=== PATIENT | female | born 1960 | race Caucasian/White ===

== ENCOUNTER 2016-12-13 11:42 | Inpatient (IN) | payer OTHER ==
[2016-12-10 13:22] LABS: ASPARTATE AMINO TRANSFERASE 19 U/L (15-37); BLOOD UREA NITROGEN 18 mg/dL (7-18)
[~2016-12-13] VITALS: Ht 166.4 cm; Wt 57.5 kg
[~2016-12-13 11:42] MED LIST: CEPH-376 PO; EMPA25TA PO; FLUC150T PO; INSU100V8 SQ; LEVO125T5 PO; LEVO137T25 PO; LIRA0.6P2 SC; METF500T9 PO; ONDA8TAB16 SL; SULF-169 PO; [UNRECOGNIZED DRUG - OTHER] PO
[2016-12-13] MEDS ORDERED: LACTATED RINGERS 1,000 ML IV SCH (12:05)
[2016-12-13] MEDS ORDERED: DEXTROSE 50%, 50ML SYRINGE ONE (12:28)
[2016-12-13] MEDS ORDERED: DEXTROSE 50%, 50ML SYRINGE IVPush ONE (12:30)
[2016-12-13 12:39] VITALS: BP 107/71
[2016-12-13] MEDS ORDERED: FENTANYL PF 100 MCG/2ML ONE ×2 (13:52→16:03)
[2016-12-13] MEDS ORDERED: MIDAZOLAM 1 MG/ML, 2ML ONE (13:52)
[2016-12-13] MEDS ORDERED: EPINEPHRINE 1 MG/ML, 1ML ONE (13:55)
[2016-12-13] MEDS ORDERED: BUPIVACAINE/PF 0.5% ONE (13:55)
[2016-12-13] MEDS ORDERED: ONDANSETRON 2MG/ML, 2ML ONE ×2 (14:29→16:03)
[2016-12-13] MEDS ORDERED: PHENYLEPHRINE 10 MG/ML ONE (14:29)
[2016-12-13] MEDS ORDERED: DEXAMETHASONE 4 MG/ML, 1ML ONE (14:29)
[2016-12-13] MEDS ORDERED: PROPOFOL 10 MG/ML, 20ML ONE (14:29)
[2016-12-13] MEDS ORDERED: CEFAZOLIN 1,000 MG ONE (14:29)
[2016-12-13] MEDS ORDERED: MIDAZOLAM 1 MG/ML, 2ML IV PRN (15:00)
[2016-12-13] MEDS ORDERED: hydrALAzine 20 MG/ML, 1ML IV PRN (15:00)
[2016-12-13] MEDS ORDERED: MEPERIDINE/PF 25MG/0.5ML IVPush PRN (15:00)
[2016-12-13] MEDS ORDERED: ONDANSETRON 2MG/ML, 2ML IVPush PRN ×2 (15:00→16:00)
[2016-12-13] MEDS ORDERED: ALBUTEROL/IPRATROPIUM 2.5MG/0.5MG, 3 ML NPPB PRN (15:00)
[2016-12-13] MEDS ORDERED: HYDROmorphone 1 MG/ML, 1ML IV PRN (15:00)
[2016-12-13] MEDS ORDERED: LABETALOL 5MG/ML, 20ML IV PRN (15:00)
[2016-12-13] MEDS ORDERED: FENTANYL PF 100 MCG/2ML IV PRN (15:00)
[2016-12-13] MEDS ORDERED: METOCLOPRAMIDE 5 MG/ML, 2ML IV PRN (15:00)
[2016-12-13] MEDS ORDERED: OXYcodone 5 MG/5 ML ORAL.SOL UDC PO PRN (15:00)
[2016-12-13] MEDS ORDERED: ACETAMINOPHEN 325 MG TABLET PO PRN (15:00)
[2016-12-13] MEDS ORDERED: HYDROmorphone 1 MG/ML, 1ML ONE (15:23)
[2016-12-13] MEDS ORDERED: ALUMINUM/MAG/SIMETHICONE 30 ML UDC PO PRN (16:00)
[2016-12-13] MEDS ORDERED: BISACODYL 10 MG SUPP PR PRN (16:00)
[2016-12-13] MEDS ORDERED: HYDROcodone/APAP 5/325 TABLET PO PRN (16:00)
[2016-12-13] MEDS ORDERED: SENNA/DOCUSATE TABLET PO PRN (16:00)
[2016-12-13] MEDS ORDERED: OXYcodone/APAP 5/325MG TABLET PO PRN (16:00)
[2016-12-13] MEDS ORDERED: PROMETHAZINE 25 MG/ML, 1ML IM PRN (16:00)
[2016-12-13] MEDS ORDERED: MAGNESIUM HYDROXIDE 8%, 30ML UDC PO PRN (16:00)
[2016-12-13] MEDS ORDERED: OXYcodone 5 MG/5 ML ORAL.SOL UDC ONE (16:03)
[2016-12-13] MEDS ORDERED: ACETAMINOPHEN 650 MG/20.3 ML UDC ONE (16:03)
[2016-12-13] MEDS: morphine SULFATE 10 MG/ML, 1ML IVPush PRN (18:34)
[2016-12-13 19:58] VITALS: BP 135/88
[2016-12-13] MEDS: CEFAZOLIN PMX 1GM/50ML 50 ML IVPB SCH (20:31)
[2016-12-13] MEDS: ENOXAPARIN 40 MG/0.4 ML SQ SCH (20:32)
[2016-12-13] MEDS: D5%-0.45% NACL 1,000 ML IV SCH (21:18)
[2016-12-14 00:37] VITALS: BP 132/88
[2016-12-14] MEDS: CEFAZOLIN PMX 1GM/50ML 50 ML IVPB SCH ×2 (03:56→12:05)
[2016-12-14] MEDS: morphine SULFATE 10 MG/ML, 1ML IVPush PRN ×2 (04:09→12:57)
[2016-12-14 08:31] VITALS: BP 102/68
[2016-12-14] MEDS: MULTIVITAMINS/MINERALS TABLET PO SCH (08:43)
[2016-12-14] MEDS: ONDANSETRON 2MG/ML, 2ML IVPush PRN ×2 (12:04→21:25)
[2016-12-14] MEDS: D5%-0.45% NACL 1,000 ML IV SCH (12:05)
[2016-12-14] MEDS: INSULIN ASPART 100 UNITS/ML, PEN SQ-INSULIN SCH ×3 (12:51→21:24)
[2016-12-14 13:16] VITALS: BP 91/59
[2016-12-14] MEDS: CEFTAROLINE 600 MG in SODIUM CHLORIDE 0.9% 100 ML IV SCH (19:36)
[2016-12-14] MEDS: ENOXAPARIN 40 MG/0.4 ML SQ SCH (19:36)
[2016-12-14] MEDS: metFORMIN 500 MG TABLET PO SCH (19:46)
[2016-12-14] MEDS: INSULIN DETEMIR 100 UNITS/ML, PEN SQ-INSULIN SCH (21:25)
[2016-12-14] MEDS: ZOLPIDEM 10MG TABLET PO PRN (21:25)
[2016-12-14 21:30] VITALS: BP 92/54
[2016-12-15 01:47] VITALS: BP 97/63
[2016-12-15 05:02] LABS: HEMATOCRIT 34.8 % (34.6-47.8); HEMOGLOBIN 11.4 g/dL (11.7-16.4); WHITE BLOOD COUNT 5.9 x10^3/uL (3.4-10)
[2016-12-15] MEDS: D5%-0.45% NACL 1,000 ML IV SCH ×2 (05:09→16:29)
[2016-12-15] MEDS: ONDANSETRON 2MG/ML, 2ML IVPush PRN ×3 (05:28→20:19)
[2016-12-15] MEDS: morphine SULFATE 10 MG/ML, 1ML IVPush PRN ×3 (05:29→20:20)
[2016-12-15] MEDS: LEVOTHYROXINE 137 MCG TABLET PO SCH (06:42)
[2016-12-15] MEDS: CEFTAROLINE 600 MG in SODIUM CHLORIDE 0.9% 100 ML IV SCH ×2 (06:42→18:46)
[2016-12-15] MEDS: INSULIN ASPART 100 UNITS/ML, PEN SQ-INSULIN SCH ×4 (06:45→21:45)
[2016-12-15 07:45] VITALS: BP 102/67
[2016-12-15] MEDS: MULTIVITAMINS/MINERALS TABLET PO SCH (09:27)
[2016-12-15] MEDS: metFORMIN 500 MG TABLET PO SCH ×2 (09:27→21:45)
[2016-12-15 13:40] VITALS: BP 96/60
[2016-12-15 19:51] VITALS: BP 96/62
[2016-12-15] MEDS: ENOXAPARIN 40 MG/0.4 ML SQ SCH (19:58)
[2016-12-15] MEDS: ZOLPIDEM 10MG TABLET PO PRN (21:45)
[2016-12-15] MEDS: INSULIN DETEMIR 100 UNITS/ML, PEN SQ-INSULIN SCH (21:45)
[2016-12-16 01:12] VITALS: BP 104/67
[2016-12-16 06:33] VITALS: BP 96/66
[2016-12-16] MEDS: LEVOTHYROXINE 137 MCG TABLET PO SCH (06:36)
[2016-12-16] MEDS: CEFTAROLINE 600 MG in SODIUM CHLORIDE 0.9% 100 ML IV SCH ×2 (06:37→18:38)
[2016-12-16] MEDS: INSULIN ASPART 100 UNITS/ML, PEN SQ-INSULIN SCH ×4 (06:45→20:38)
[2016-12-16] MEDS: D5%-0.45% NACL 1,000 ML IV SCH ×2 (07:20→20:20)
[2016-12-16] MEDS: ONDANSETRON 2MG/ML, 2ML IVPush PRN ×2 (08:58→16:36)
[2016-12-16] MEDS: MULTIVITAMINS/MINERALS TABLET PO SCH (08:58)
[2016-12-16] MEDS: morphine SULFATE 10 MG/ML, 1ML IVPush PRN ×3 (08:58→20:36)
[2016-12-16] MEDS: metFORMIN 500 MG TABLET PO SCH ×2 (08:59→20:36)
[2016-12-16] MEDS ORDERED: EMPAGLIFOZIN 10 MG HOMEMEDPO SCH (09:00)
[2016-12-16 15:12] VITALS: BP 119/77
[2016-12-16] MEDS: metroNIDAZOLE 500 MG TABLET PO SCH (17:08)
[2016-12-16 19:51] VITALS: BP 96/62
[2016-12-16] MEDS: ENOXAPARIN 40 MG/0.4 ML SQ SCH (20:04)
[2016-12-16] MEDS: INSULIN DETEMIR 100 UNITS/ML, PEN SQ-INSULIN SCH (20:37)
[2016-12-16] MEDS: ZOLPIDEM 10MG TABLET PO PRN (21:58)
[2016-12-17 02:21] VITALS: BP 94/58
[2016-12-17] MEDS: INSULIN ASPART 100 UNITS/ML, PEN SQ-INSULIN SCH ×4 (05:56→22:18)
[2016-12-17] MEDS: LEVOTHYROXINE 137 MCG TABLET PO SCH (05:57)
[2016-12-17] MEDS: morphine SULFATE 10 MG/ML, 1ML IVPush PRN (06:15)
[2016-12-17 07:00] VITALS: BP 103/69
[2016-12-17] MEDS: CEFTAROLINE 600 MG in SODIUM CHLORIDE 0.9% 100 ML IV SCH ×2 (07:17→18:51)
[2016-12-17] MEDS ORDERED: FLUCONAZOLE 100 MG TABLET PO ONE (08:30)
[2016-12-17] MEDS: D5%-0.45% NACL 1,000 ML IV SCH ×2 (08:34→23:20)
[2016-12-17] MEDS: metroNIDAZOLE 500 MG TABLET PO SCH ×3 (08:55→17:01)
[2016-12-17] MEDS: metFORMIN 500 MG TABLET PO SCH ×2 (08:55→20:50)
[2016-12-17] MEDS: MULTIVITAMINS/MINERALS TABLET PO SCH (08:55)
[2016-12-17] MEDS: ONDANSETRON 2MG/ML, 2ML IVPush PRN ×2 (12:18→17:00)
[2016-12-17 14:34] VITALS: BP 99/64
[2016-12-17 19:03] VITALS: BP 125/80
[2016-12-17] MEDS: ENOXAPARIN 40 MG/0.4 ML SQ SCH (20:51)
[2016-12-17] MEDS: ZOLPIDEM 10MG TABLET PO PRN (22:16)
[2016-12-17] MEDS: INSULIN DETEMIR 100 UNITS/ML, PEN SQ-INSULIN SCH (22:17)
[2016-12-18] MEDS: metroNIDAZOLE 500 MG TABLET PO SCH ×3 (03:00→16:00)
[2016-12-18 03:05] VITALS: BP 98/68
[2016-12-18] MEDS: CEFTAROLINE 600 MG in SODIUM CHLORIDE 0.9% 100 ML IV SCH ×3 (06:25→18:45)
[2016-12-18] MEDS: LEVOTHYROXINE 137 MCG TABLET PO SCH (06:25)
[2016-12-18] MEDS: INSULIN ASPART 100 UNITS/ML, PEN SQ-INSULIN SCH ×4 (07:00→21:00)
[2016-12-18 08:20] VITALS: BP 136/86
[2016-12-18] MEDS: ONDANSETRON 2MG/ML, 2ML IVPush PRN ×3 (08:35→21:40)
[2016-12-18] MEDS: MULTIVITAMINS/MINERALS TABLET PO SCH (09:00)
[2016-12-18] MEDS: metFORMIN 500 MG TABLET PO SCH ×2 (09:00→21:00)
[2016-12-18] MEDS: D5%-0.45% NACL 1,000 ML IV SCH (11:10)
[2016-12-18 13:42] VITALS: BP 118/81
[2016-12-18] MEDS: morphine SULFATE 10 MG/ML, 1ML IVPush PRN ×2 (19:42→21:40)
[2016-12-18 19:57] VITALS: BP 127/82
[2016-12-18] MEDS: ENOXAPARIN 40 MG/0.4 ML SQ SCH (21:20)
[2016-12-18] MEDS: ZOLPIDEM 10MG TABLET PO PRN (21:21)
[2016-12-18] MEDS: INSULIN DETEMIR 100 UNITS/ML, PEN SQ-INSULIN SCH (21:41)
[2016-12-19] MEDS: morphine SULFATE 10 MG/ML, 1ML IVPush PRN ×2 (01:54→06:26)
[2016-12-19] MEDS: D5%-0.45% NACL 1,000 ML IV SCH ×2 (02:00→16:41)
[2016-12-19] MEDS: metroNIDAZOLE 500 MG TABLET PO SCH ×4 (02:03→23:30)
[2016-12-19 03:06] VITALS: BP 95/53
[2016-12-19 03:59] VITALS: BP 92/61
[2016-12-19] MEDS: LEVOTHYROXINE 137 MCG TABLET PO SCH (06:26)
[2016-12-19] MEDS: INSULIN ASPART 100 UNITS/ML, PEN SQ-INSULIN SCH ×4 (06:32→20:27)
[2016-12-19] MEDS: CEFTAROLINE 600 MG in SODIUM CHLORIDE 0.9% 100 ML IV SCH ×3 (06:42→20:27)
[2016-12-19] MEDS: ONDANSETRON 2MG/ML, 2ML IVPush PRN ×2 (06:42→16:53)
[2016-12-19 08:26] VITALS: BP 135/80
[2016-12-19] MEDS: metFORMIN 500 MG TABLET PO SCH ×2 (08:37→20:27)
[2016-12-19] MEDS: MULTIVITAMINS/MINERALS TABLET PO SCH (08:37)
[2016-12-19] MEDS ORDERED: SCOPOLAMINE PATCH, 1.5MG PATCH.TD72 TD SCH (10:00)
[2016-12-19 14:10] VITALS: BP 155/90
[2016-12-19 18:59] VITALS: BP 132/77
[2016-12-19] MEDS: ENOXAPARIN 40 MG/0.4 ML SQ SCH (20:27)
[2016-12-19] MEDS: INSULIN DETEMIR 100 UNITS/ML, PEN SQ-INSULIN SCH (20:49)
[2016-12-19] MEDS: ZOLPIDEM 10MG TABLET PO PRN (22:39)
[2016-12-20] MEDS: D5%-0.45% NACL 1,000 ML IV SCH (03:40)
[2016-12-20 04:03] VITALS: BP 93/56
[2016-12-20] MEDS: LEVOTHYROXINE 137 MCG TABLET PO SCH (06:31)
[2016-12-20] MEDS: INSULIN ASPART 100 UNITS/ML, PEN SQ-INSULIN SCH ×2 (06:31→11:00)
[2016-12-20 07:10] VITALS: BP 99/67
[2016-12-20] MEDS: MULTIVITAMINS/MINERALS TABLET PO SCH (08:35)
[2016-12-20] MEDS: metroNIDAZOLE 500 MG TABLET PO SCH (08:35)
[2016-12-20] MEDS: metFORMIN 500 MG TABLET PO SCH (08:35)
[2016-12-20] MEDS: CEFTAROLINE 600 MG in SODIUM CHLORIDE 0.9% 100 ML IV SCH (09:19)
[2016-12-20] MEDS ORDERED: TRAM50TA2 PO (12:33)
[2016-12-20] MEDS ORDERED: MORP15TA3 PO (12:40)
[2016-12-20 13:29] VITALS: BP 128/83
== END 2016-12-20 14:45 | disposition home or self-care (01) | DRG 475 ==
LOC: OUT 11:42 → ORIP 15:49 → 4NOR 17:29
PROVIDERS: ADMIT Orthopaedic Surgery; ATTEND Orthopaedic Surgery
PROC: 0Y6J0Z1 Detachment at Left Lower Leg, High, Open Approach (ICD-10-PCS; 2016-12-13)
PROC: 02HV33Z Insertion of Infusion Device into Superior Vena Cava, Percutaneous Approach (ICD-10-PCS; principal; 2016-12-18)
PROC: B548ZZA Ultrasonography of Superior Vena Cava, Guidance (ICD-10-PCS; 2016-12-18)
DX: T87.44 Infection of amputation stump, left lower extremity (principal); M86.8X6 Other osteomyelitis, lower leg; E11.69 Type 2 diabetes mellitus with other specified complication; I10 Essential (primary) hypertension; E66.3 Overweight; G56.01 Carpal tunnel syndrome, right upper limb; E03.9 Hypothyroidism, unspecified; Z79.4 Long term (current) use of insulin; Z82.49 Family history of ischemic heart disease and other diseases of the circulatory system; Z89.512 Acquired absence of left leg below knee; Z98.1 Arthrodesis status; Z87.01 Personal history of pneumonia (recurrent); Z68.20 Body mass index [BMI] 20.0-20.9, adult; Z88.5 Allergy status to narcotic agent; Z88.1 Allergy status to other antibiotic agents; Z88.8 Allergy status to other drugs, medicaments and biological substances; Z98.51 Tubal ligation status
CPT/HCPCS: 36415; 36569; 76937; 77001; 80053; 82962; 83036; 85025; 85651; 86140; 87015; 87040; 87070; 87075; 87077; 87102; 87116; 87176; 87181; 87186; 87205; 87206; 88304; 88311; 93005; J0171; J0690; J0712; J1100; J1170; J1650; J1815; J2250; J2405; J2704; J3010; J3490; C1751; J2270; J2370; J7120